=== PATIENT | female | born 1955 ===

== ENCOUNTER 2017-11-03 18:53 | Emergency (ER) | payer OTHER ==
[2017-11-03 19:22] VITALS: BP 124/79; PULSE 80; RESP 14; TEMP 98.8; O2SAT 99
--- NOTE | 2017-11-03 19:54 | C.PDOC ---
History Of Present Illness 62 year old female presents to the ER with a complaint of pain to the bilateral thigh and inguinal area for the past 1 week. Patient states she first noted the pain while getting out of her car and states the pain worsens with walking and turning around in bed. Denies trauma, abdominal pain, urinary symptoms, weakness , numbness, or back pain. Patient has a Hx of sciatica but notes the pain is different. Time Seen by Provider: 11/03/17 19:25 Chief Complaint (Nursing): Lower Extremity Problem/Injury History Per: Patient History/Exam Limitations: no limitations Onset/Duration Of Symptoms: Days Current Symptoms Are (Timing): Still Present Recent travel outside of the [place]: No Past Medical History Reviewed: Historical Data, Nursing Documentation, Vital Signs Vital Signs: Last Vital Signs Temp 98.8 F 11/03/17 19:18 Pulse 80 11/03/17 19:18 Resp 14 11/03/17 19:18 BP 124/79 11/03/17 19:18 Pulse Ox 99 11/03/17 20:44 Surgical History: No Surg Hx Family History: States: Unknown Family Hx - Social History Hx Alcohol Use: No Hx Substance Use: No - Immunization History Hx Tetanus Toxoid Vaccination: Yes Hx Influenza Vaccination: Yes Hx Pneumococcal Vaccination: Yes Review Of Systems Gastrointestinal: Negative for: Abdominal Pain Genitourinary: Positive for: Other (Inguinal pain). Negative for: Dysuria, Incontinence, Hematuria Musculoskeletal: Positive for: Leg Pain. Negative for: Back Pain Skin: Negative for: Rash Neurological: Negative for: Weakness, Numbness Physical Exam - Physical Exam Appears: Non-toxic Skin: Normal Color, Warm, Dry Head: Atraumatic, Normacephalic Eye(s): bilateral: Normal Inspection Gastrointestinal/Abdominal: Soft, No Tenderness, No Distention, No Hernia Back: No Vertebral Tenderness, No Paraspinal Tenderness Extremity: Normal ROM (x4), No Tenderness, No Calf Tenderness, No Deformity, No Swelling Neurological/Psych: Oriented x3, Normal Speech, Normal Motor, Normal Sensation Gait: Steady ED Course And Treatment O2 Sat by Pulse Oximetry: 99 (Room air) Pulse Ox Interpretation: Normal Progress Note: Patient is refusing a UA and pain medication at this time. She is ambulating in the emergency room without any pain or difficulty, vitals are stable, will discharge home with instructions to follow up with PMD. Pt is requesting a note to stay home and rest for a few days. Disposition Counseled Patient/Family Regarding: Diagnosis, Need For Followup, Rx Given - Disposition Referrals: PMD, private doctor [Other] Disposition: HOME/ ROUTINE Disposition Time: 19:52 Condition: STABLE Additional Instructions: Take motrin for pain Please follow up with PMD Return to ER if worse Prescriptions: Ibuprofen [Motrin] 600 mg PO Q6H #24 tab Instructions: Groin Strain (DC) Forms: [employer] (German), Work Excuse - Clinical Impression Clinical Impression: Inguinal muscle strain - PA / [employer] / Resident Statement MD/DO has reviewed & agrees with the documentation as recorded. - Scribe Statement The provider has reviewed the documentation as recorded by the Scribdemond Gongora All medical record entries made by the Elisaibdemond were at my direction and personally dictated by me. I have reviewed the chart and agree that the record accurately reflects my personal performance of the history, physical exam, medical decision making, and the department course for this patient. I have also personally directed, reviewed, and agree with the discharge instructions and disposition.
== END 2017-11-03 20:03 | disposition home or self-care (01) ==
LOC: C.ER 18:53
DX: S39.011A Strain of muscle, fascia and tendon of abdomen, initial encounter (principal); X58.XXXA Exposure to other specified factors, initial encounter